=== PATIENT | female | born 1985 | race Caucasian/White ===

== ENCOUNTER 2022-12-10 05:09 | Emergency (ER) | payer BC ==
[~2022-12-10] VITALS: Ht 160 cm; Wt 61.2 kg
[2022-12-10] MEDS ORDERED: HYDR-3980 PO ×2 (05:31→06:06)
[2022-12-10] MEDS ORDERED: SERT25TA PO (05:31)
[2022-12-10] MEDS ORDERED: PROCHLORPERAZINE MALEATE 5 MG TABLET PO ONE (05:45)
[2022-12-10] MEDS ORDERED: HYDROMORPHONE 2 MG/1 ML DISP.SYRIN ONE (05:45)
[2022-12-10] MEDS ORDERED: HYDROMORPHONE 1 MG/1 ML DISP.SYRIN IM ONE (05:45)
[2022-12-10] MEDS ORDERED: PROCHLORPERAZINE MALEATE 5 MG TABLET ONE (05:45)
[2022-12-10 05:50] LABS: *BILIRUBIN,URIN NEGATIVE (NEGATIVE); *BLOOD, URINE 2+ (NEGATIVE); *COLOR,URINE YELLOW (YELLOW); *KETONES,URINE NEGATIVE (NEGATIVE); *UROBILINOGEN,URINE 0.2 E.U./dl (NORMAL); LEUKOCYTE ESTERASE ,URINE NEGATIVE (NEGATIVE); NITRITE, URINE NEGATIVE (NEGATIVE); PH,URINE 5.5 (5.0-8.0); UGLUCOSE NEGATIVE (NEGATIVE)
[2022-12-10 05:54] LABS: *CLARITY,URINE CLOUDY (CLEAR); *URINE HCG, QUAL NEGATIVE (NEGATIVE)
[2022-12-10] MEDS ORDERED: KETOROLAC TROMETHAMINE 60 MG INJ IM ONE ×2 (05:57→06:00)
[2022-12-10] MEDS ORDERED: KETO10TA2 PO (06:06)
--- NOTE | 2022-12-10 06:14 | NUR ---
Patient discharged to home in stable condition. Written and verbal after care instructions given. Patient verbalizes understanding of instructions. Stressed follow up or return to ER for worsening s/s. Patient is a/ox4, NAD noted. patient is ambulatory with steady gait, accompanied by her mother
[2022-12-10 06:15] VITALS: BP 120/73
[2022-12-10 12:13] LABS: BACTERIA,URINE FEW /HPF (NONE SEEN); URINE AMORPHOUS URATE MODERATE /HPF
[2022-12-10 12:14] LABS: SQUAMOUS EPITHELIAL CELL,UR MODERATE /HPF (NONE SEEN); WBC,URINE 0-3 /HPF (0-3)
== END 2022-12-10 06:16 | disposition home or self-care (01) ==
LOC: ER 05:17
DX: N94.6 Dysmenorrhea, unspecified (principal); F32.A Depression, unspecified; Z79.899 Other long term (current) drug therapy; D25.9 Leiomyoma of uterus, unspecified
CPT/HCPCS: 99284; 81001; 84703; 96372 ×2; J1885; J1170; J8499; A4663